=== PATIENT | female | born 1975 | race Two or more races ===

== ENCOUNTER 2021-02-26 08:07 | Day surgery (SDC) | payer BC ==
[~2021-02-26] VITALS: Ht 154.9 cm; Wt 69.0 kg
[~2021-02-26 08:07] MED LIST: HYDROmorphone 2 MG/ML VIAL IVP PRN; IV RINGERS,LACTATED 1000ML 1,000 ML IV SCH; MORPHINE SULFATE 2 MG/ML INJ. IVP PRN; PROCHLORPERAZINE 10 MG/2 ML VIAL. IVP PRN; ceFAZolin SODIUM IV Push 1 GM VIAL. IVP PRN; fentaNYL PF VIAL 100 MCG/2 ML VIAL IVP PRN
[2021-02-26] MEDS ORDERED: ONDANSETRON PF 4 MG/2 ML VIAL. ONE (11:27)
[2021-02-26] MEDS ORDERED: PROPOFOL 10 MG/ML (20ML) VIAL. IV ONE (11:27)
[2021-02-26] MEDS ORDERED: LIDOCAINE 1% PF 5 ML VIAL. ONE (11:27)
[2021-02-26] MEDS ORDERED: DEXAMETHASONE SOD PHOS 4 MG/ML VIAL ONE (11:28)
[2021-02-26] MEDS ORDERED: fentaNYL PF VIAL 100 MCG/2 ML VIAL ONE (11:29)
[2021-02-26] MEDS ORDERED: SEVOFLURANE 16 TO 30 MINUTES. IH ONE (12:09)
--- NOTE | 2021-02-26 12:20 | PDOC ---
BRIEF OPERATIVE NOTE Date: Feb 26, 2021 Pre-Op Diagnosis Misplaced IUD Post-Op Diagnosis Same Procedure Performed Op [facility] [place] Surgeon Dr. Smith Anesthesia Type: General Blood Loss 5 ml Specimens Obtained IUD and endometrial biopsy Findings IUD and endometrial polyp Complications none Operative Note see dictation BIRD SMITH Jr, MD Feb 26, 2021 12:20
[2021-02-26] MEDS ORDERED: IBUP-1060 PO (12:22)
--- NOTE | 2021-02-26 12:22 | DISCH ---
DISCHARGE INSTRUCTIONS Condition on Discharge Condition on Discharge: Stable Activity After Discharge Lifting Instructions after Dis: No heavy lifting Driving Instructions after Dis: Do not drive today Diet after Discharge Diet after Discharge: Regular Contacting the [facility] after DC Call your doctor for: Concerns you may have Follow-Up Follow up with: Dr. Smith in 1 week BIRD SMITH Jr, MD Feb 26, 2021 12:22
--- NOTE | 2021-02-26 12:55 | OP ---
DATE OF SURGERY: 02/26/2021 PREOPERATIVE DIAGNOSIS: Misplaced intrauterine device. POSTOPERATIVE DIAGNOSIS: Misplaced intrauterine device. PROCEDURE PERFORMED: Operative hysteroscopy. SURGEON: Hermes Smith MD ANESTHESIA: GETA. ESTIMATED BLOOD LOSS: 5 mL. COMPLICATIONS: None. FINDINGS: IUD and endometrial polyp. SUMMARY: A 45-year-old female with misplaced IUD counseled on operative hysteroscopy for IUD removal. The patient was counseled on the risks, benefits and expectations and voiced clear understanding to proceed. DESCRIPTION OF PROCEDURE: The patient was taken to surgery suite and placed in dorsal lithotomy position, was prepped with Betadine solution and draped in a sterile fashion. After adequate anesthesia, weighted speculum was placed. Anterior lip of the cervix was grasped with single tooth tenaculum. Cervix was gently dilated up to about size 5 Hegar dilators. Tail of the IUD was actually visualized under anesthesia and removed with ring forceps. The hysteroscope was performed to evaluate the remainder of the uterine cavity, which appeared normal with the exception of endometrial polyp. This polyp was biopsied. The hysteroscope was then removed. Single tooth tenaculum and weighted speculum were also removed. The patient tolerated the procedure well and was taken to recovery room in stable condition. Sponge count correct x 3. YOVANNY/MANDIE/MIRIAN DR: YOVANNY/mary TID: [id number]
[2021-02-26] MEDS ORDERED: IBUPROFEN 400 MG TABLET. PO ONE (13:00)
[2021-02-26 13:30] VITALS: BP 145/65
== END 2021-02-26 14:09 | disposition home or self-care (01) ==
LOC: SURG 08:07
PROVIDERS: ATTEND Obstetrics & Gynecology
DX: T83.32XA Displacement of intrauterine contraceptive device, initial encounter (principal); N84.0 Polyp of corpus uteri; Z20.822 Contact with and (suspected) exposure to COVID-19; Z98.890 Other specified postprocedural states; Y83.8 Other surgical procedures as the cause of abnormal reaction of the patient, or of later complication, without mention of misadventure at the time of the procedure
CPT/HCPCS: 58301; 58558; 81025; A4930; J0690; J1100; J2405; J2704; J3010; J3490; U0003; U0005